=== PATIENT | male | born 1945 | race Caucasian/White ===

== ENCOUNTER 2024-08-30 00:35 | Inpatient (IN) | payer MEDICARE, OTHER, SELFPAY ==
[2024-08-29 21:36] VITALS: BP 136/81
[2024-08-29 22:07] LABS: Lactic Acid 1.3 mmol/L (0.7-2.0)
[2024-08-29 22:08] LABS: Hematocrit 41.8 % (39.0-52.0); Hemoglobin 14.4 g/dL (13.0-18.0); Mean Corp Hgb Conc. 34.4 g/dL (33.0-37.0); Mean Corpuscular Hgb 31.2 pg (27.0-31.0); Mean Corpuscular Volume 90.7 fL (80.0-94.0); Mean Platelet Volume 9.9 fL (7.4-10.4); Platelet Count 157 10^3/uL (130-400); Red Blood Cell Count 4.61 10^6/uL (4.70-6.10); Red Cell Dist. Width 13.2 % (11.5-14.5); White Blood Cell Count 16.4 10^3/uL (4.8-10.8)
[2024-08-29 22:11] LABS: COVID-19 Antigen Negative (Negative)
--- NOTE | 2024-08-29 22:11 | ED.GENMED ---
History of Present Illness
General
Chief Complaint: Cough
Source: patient and family
Exam Limitations: none
Time Seen by Provider: 08/29/24 22:04
History of Present Illness
History of Present Illness:
79yoM with a history of hypertension, hyperlipidemia, remote history of bladder cancer and melanoma presenting with his and daughter for evaluation of shortness of breath. History is limited due to cough and a majority of the history is
provided by his family members at bedside. Patient has been having a 'head cold' for the past week or so. He started to experience worsening cough and shortness of breath today and is unable to speak well due to his coughing. Cough was initially
productive but he is now bringing up less phlegm after taking 2 doses of Mucinex today. No fevers or chest pain.
Past History
Past History
ED Past Medical History: Cancer, HTN and Hypercholesterolemia
ED Past Surgical History: Appendectomy, Cholecystectomy and Other (Abdominal hernia repair)
Social History
Tobacco: Non-smoker
Alcohol: None
Drug: None
Personal:
Living: with family
Employment: Retired
Family History
Family History: Other (Noncontributory)
Phy Exam
General Physical Exam
General Presentation: mild distress
General age: appears stated age
General Skin: warm and dry
General Habitus: normal and elderly
General Mental: alert
ENT Exam
ENT Exam: normocephalic
Cardiovascular Exam
Cardiovascular Exam: regular rate/rhythm and no edema
Pulmonary Exam
Pulmonary Exam: no stridor, no wheezing and other (Frequent coughing throughout exam. Rales noted to RLL. Mildly increased WOB)
Neurological Exam
Neurological Exam: alert
Shila Coma Scale
Eye Opening: Spontaneous
Verbal Response: Oriented
Motor Response: Obeys Commands
GCS Total Score: 15
Skin Exam
Skin Exam: normal color and warm/dry
Psychiatric Exam
Psychiatric Exam: normal mood/affect
Course
Orders/Labs/Results
Orders:
Orders
08/29/24 21:39
CR Chest - 2 Views Urgent
Comment:
Reason For Exam: cough
08/29/24 21:47
Comprehensive Metabolic Panel Urgent
08/29/24 21:48
COVID-19 Antigen Urgent
Source: Nasal Swab
Complete Blood Count/With Diff Urgent
Lactic Acid Urgent
Influenza A+B Rapid Molecular Urgent
LUPILLO Source: Nasal Swab
Specimen Description:
08/29/24 22:10
Cardiac Monitoring- Treatment ONCE
08/29/24 22:13
Electrocardiogram (*1) Urgent
Reason for Study: Shortness of Breath
EKG- Treatment ONCE
08/29/24 22:18
NT-proBNP Urgent
Troponin I Urgent
08/29/24 22:47
CefTRIAXone [Rocephin] 2,000 mg IV NOW STA
08/29/24 23:00
Flush (0.9% Sodium Chloride) [Flush (Nss)] See Dose Instructions IV PER PROTOCOL
08/30/24 00:03
Admit/Transfer Patient As Directed
Co-Sign Provider:
Level of Care: Inpatient admission
Assign to:: Medical/Surgical
Physician / Group: Devon Martinez
Diagnosis: Pneumonia
Reason for Hospitalization: Pneumonia
Expected length of stay greater than two midnights?: Yes
ELOS- Estimated Length of Stay in days: 3
I certify the patient meets the requirements for IP care: Yes
08/30/24 00:04
PRN Pain Medication Management As Directed
May give lesser potent ordered pain med per pt: Yes
preference::
Protocol:: Medication orders for pain may be administered in a
manner that supports deferring to patient preference
when the pt is:
- Requesting an ordered lesser potent pain medication.
Least to most potent pain medications are defined
as: acetaminophen < NSAID < tramadol < opioids
(morphine, oxycodone, hydromorphone).
- Requesting a lesser dose of the same medication IF
ORDERED.
- Requesting a less intrusive route of administration
if both routes are prescribed by the provider (PO <
IV).
08/30/24 00:05
Code Status As Directed
Resuscitation Status: Full Code
08/30/24 01:06
Acetaminophen [Tylenol] 650 mg PO Q4HPRN PRN
08/30/24 01:06
Activity As Directed
Activity Level: Out of Bed-Early Mobility
Vital Signs As Directed
Frequency: Per unit guidelines
Weight As Directed
Frequency: Once
O2 Therapy [RESP] Routine
Titrate/Wean O2 to maintain O2 sat greater than (%): 93
Ot Eval And Treat Routine
Pt Eval And Treat Routine
Activity Level: Out of Bed-Early Mobility
DX Deep Vein Thrombosis Video Routine
08/30/24 01:30
Respiratory Culture/Gram Stain Routine
LUPILLO Source: Sputum
Specimen Description:
Date Specimen was Collected: 08/30/24
Time Specimen was Collected: 01:24
08/30/24 Breakfast
Regular
At Your Request: Full Participation
08/30/24 06:15
Legionella Urinary Antigen Routine
LUPILLO Source: Urine
Specimen Description:
Strep pneumoniae Antigen Routine
LUPILLO Source: Urine
Specimen Description:
08/30/24 06:20
Basic Metabolic Panel IN AM
Complete Blood Count/No Diff IN AM
08/30/24 08:00
Cholecalciferol (Vitamin D3) [VITAMIN D3 (cholecalciferol)] 50 mcg PO DAILY
Doxycycline [Vibramycin] 100 mg PO BID
Finasteride [Proscar] 5 mg PO DAILY
Guaifenesin [Mucinex] 600 mg PO Q12
Hydrochlorothiazide [Oretic] 12.5 mg PO DAILY
Rosuvastatin Calcium [Crestor] 5 mg PO DAILY
Tamsulosin [Flomax] 0.4 mg PO DAILY
Timolol Maleate 0.5% [Timoptic 0.5% Ophthalmic Solution] 1 drop BOTH EYES DAILY
Vit C/Vit E/Lutein/Min/[place]-3 [Ocuvite Softgel] 1 cap PO BID AT 0800,1700
08/30/24 18:00
Enoxaparin Sodium [Lovenox] 40 mg SC QPM
Latanoprost [Xalatan Ophthalmic Solution] 1 drop BOTH EYES QPM
08/30/24 22:00
CefTRIAXone [Rocephin] 1,000 mg IV Q24H
08/31/24 06:00
Basic Metabolic Panel IN AM
Complete Blood Count/No Diff IN AM
09/01/24 06:00
Basic Metabolic Panel IN AM
Complete Blood Count/No Diff IN AM
Abnormal Lab Results
08/29/24 08/29/24
21:47 21:48
WBC 16.4 H 10^3/uL
(4.8-10.8)
RBC 4.61 L 10^6/uL
(4.70-6.10)
MCH 31.2 H pg
(27.0-31.0)
Abs Immat Gran (auto) 0.1 H 10^3/uL
(0-0.05)
Absolute Neuts (auto) 10.1 H 10^3/uL
(1.4-6.5)
Absolute Lymphs (auto) 5.6 H 10^3/uL
(1.2-3.4)
BUN 23 H mg/dl
(9-20)
Glucose 137 H mg/dl
(70-99)
AST 60 H U/L
(17-59)
ALT 63 H U/L
(0-50)
08/29/24 21:48
08/29/24 21:47
Vital Signs
Initial and Last Documented VS:
Initial Vital Signs
Temp Pulse Resp BP Pulse Ox
99.9 F 87 22 136/81 92
08/29/24 21:36 08/29/24 21:36 08/29/24 21:36 08/29/24 21:36 08/29/24 21:36
Last Documented Vital Signs
Temp Pulse Resp BP Pulse Ox
99.7 F 83 20 130/71 94
08/30/24 01:28 08/30/24 04:45 08/30/24 04:45 08/30/24 04:00 08/30/24 06:38
MDM/Problems Addressed
Differential Diagnosis Includes:
79yoM here with cough x 1 week which is acutely worsening today with new SOB. Frequent coughing during exam. Mildly increased work of breathing noted. Oxygen saturation 90-92% on room air. Rales noted to the RLL. No peripheral edema noted.
Differential diagnosis includes but is not limited to: viral illness, bronchitis, pneumonia
Initial ED plan: Check cardiac labs, COVID/flu swab, EKG, and CXR.
*EKG
Interpreted by ED Provider?: Yes
EKG Intrepretation Date: 08/29/24
Heart Rate: 83
Rate: normal
Rhythm: sinus
Challenge: normal axis
Interval: normal interval
QRS Pattern: normal QRS
Ischemia: T-wave inversion
*Critical Care Note
Total Time (30-74mins, 75-104mins- exclusive of procedures): Not Applicable
Update Note
Update Note:
Leukocytosis noted with a WBC of 16. Mild transaminitis also present. COVID/flu negative. CXR shows a RLL infiltrate per my interpretation. IV Rocephin ordered and patient admitted for further management.
ED Attending Note
-
Portions of this chart may have been created with voice recognition software.� Occasional wrong word or��sound alike� substitutions may have occurred due to the inherent limitations of voice recognition software.
Discharge Plan
Departure
Patient Disposition: Admit
Date of Disposition: 08/29/24
Time of Disposition: 23:05
Presentation/result/management discussed w/ accepting MD/DO: Hospitalist
Discharge Problem:
Community acquired pneumonia
Interventions
Interventions:
*Risk Screen - Suicide Last Done: 08/30/24 01:30
*General Assessment Last Done: 08/29/24 21:36
*Neglect/Abuse Screening Last Done: 08/30/24 01:30
ED- Fall Risk Assessment Last Done: 08/29/24 22:00
ED- Pulmonary Assessment Last Done: 08/29/24 22:00
[2024-08-29 22:13] LABS: ALT (SGPT) 63 U/L (0-50); AST (SGOT) 60 U/L (17-59); Albumin 3.9 g/dl (3.5-5.0); Alkaline Phosphatase 98 U/L (38-126); Blood Urea Nitrogen 23 mg/dl (9-20); Calcium 9.2 mg/dl (8.4-10.2); Carbon Dioxide 25 mmol/L (22-30); Chloride 102 mmol/L (98-107); Glucose 137 mg/dl (70-99); Potassium 3.8 mmol/L (3.5-5.1); Sodium 135 mmol/L (135-145); Total Bilirubin 0.7 mg/dl (0.2-1.3); Total Protein 6.3 g/dl (6.3-8.2); eGFR > 60.00
[2024-08-29 22:30] VITALS: BMI 28.7
[2024-08-29 22:35] LABS: % Basophils 0.2 % (0-2); % Eosinophils 0.1 % (0-6); % Immature Granulocytes 0.4 % (0-0.5); % Lymphocytes 34.5 % (20.5-51.1); % Monocytes 3.1 % (1.7-9.3); % Neutrophils 61.7 % (42.2-75.2); Absolute Immature Granulocytes 0.1 10^3/uL (0-0.05); Absolute Lymphocytes 5.6 10^3/uL (1.2-3.4); Absolute Monocytes 0.5 10^3/uL (0.1-0.6); Absolute Neutrophils 10.1 10^3/uL (1.4-6.5); Nucleated Red Blood Cells % 0.2 % (-)
[2024-08-29 22:45] VITALS: BP 112/66
[2024-08-29 22:57] LABS: NT-proBNP 164 pg/ml; Troponin I < 0.012 ng/ml
[2024-08-29 23:00] VITALS: BP 116/69
[2024-08-29] MEDS: ROCEPHIN 2000 MG IV (23:08)
--- NOTE | 2024-08-29 23:21 | HPS.HSE ---
Addendum entered and electronically signed by Devon Martinez DO 08/30/24 01:08:
Patient seen and examined independently. Agree with findings and plan as set forth by MAY Junior.
Patient is a 79y M with PMH significant for hypertension, BPH and bladder cancer who presents to ED complaining of cough and weakness. Patient states that he has had sinus congestion, nasal congestion and symptoms of 'sinus infection' for the
past 7 days. Today he developed a cough in the AM and felt somewhat SOB. His family checked his SpO2 at home and noted that it was low. His SpO2 remained consistently in the high 80s and patient presented to the ED for further evaluation.
Ass:
RLL Pneumonia
Acute Hypoxemic Respiratory Insufficiency secondary to the above
Benign Hypertension
BPH
Bladder Cancer s/p BCG
Glaucoma
Plan:
Admit for further evaluation and treatment.
Abx for CAP.
Supportive care including O2, nebs, etc.
Follow for clinical improvement.
Continue usual outpatient medications.
Original Note:
Family Physician
-
Family Physician: NOT KNOW UNKNOWN - PT DOES
Chief Complaint
-
cough
History of Present Illness
Patient is 79-year-old male with past medical history significant for hypertension, hyperlipidemia, and BPH who presented to [place] ED for evaluation of acute onset cough and shortness of breath. Patient and daughter at bedside who assisted
in HPI. Patient has had mild URI symptoms for approximately 7 days and today he woke up with a cough and increased shortness of breath to the point he was having a hard time communicating. Cough reported as slightly productive. Denies fever, chills,
chest pain, nausea, vomiting, constipation, diarrhea or urinary symptoms.
Medical History
Past Medical History
Past Medical History: Reports Other
Additional Past Medical History:
hypertension
hyperlipidemia
BPH
glaucoma
macular degeneration
Hx bladder cancer
Hx melanoma and basal cell carcinoma
Past Surgical History: Reports Other
Additional Past Surgical History:
appendectomy
cholecystectomy
abdominal hernia repair
MOHS multiple times
cataract extraction
Social History
Tobacco: Non-smoker
Alcohol: None
Drug: None
Personal:
Living: With Family
Employment: Retired
Family History
Family History: Not pertinent and Other (Mother: brain tumor)
Allergies / Home Medications
Allergies reflects when Allergies were last updated in [facility].
Home Medications with original date entered in [facility] [employer]
Allergy/Medication List:
Allergies
Allergy/AdvReac Type Severity Reaction Status Date / Time
Sulfa (Sulfonamide Allergy Unknown Unknown Verified 08/29/24 21:36
Antibiotics)
Home Medications
alfuzosin 10 mg tablet,extended release 24 hr 10 mg PO DAILY 08/07/19
cholecalciferol (vitamin D3) 50 mcg (2,000 unit) tablet 1,000 units PO DAILY 08/07/19
hydrochlorothiazide 12.5 mg tablet 12.5 mg PO DAILY 08/07/19
rosuvastatin 5 mg tablet 5 mg PO DAILY 08/07/19
finasteride 5 mg tablet 5 mg PO DAILY 08/29/24
latanoprost 0.005 % eye drops 1 drp ophthalmic (eye) QPM 08/29/24
timolol 0.5 % eye drops 1 drp ophthalmic (eye) DAILY 08/29/24
vit C 250 mg-E 90 mg-zinc 40 mg-copper 1 [id number] chew tablet (PreserVision AREDS-2) 1 tab PO QAM AND QPM 08/29/24
Review of Systems
-
History Source: Patient and Family
Constitutional: Reports No Symptoms
EENT: Reports Sore Throat and Runny Nose
Respiratory: Reports Cough and Trouble Breathing (shortness of breath)
Cardiac: Reports No Symptoms
Abdomen/GI: Reports No Symptoms
: Reports No Symptoms
Musculoskeletal: Reports No Symptoms
Skin: Reports No Symptoms
Neurological: Reports No Symptoms
Endocrine: Reports No Symptoms
Hematologic/Lymphatic: Reports No Symptoms
Psych: Reports No Symptoms
Physical Exam
Vital Signs
Vital Signs
Temp Pulse Resp BP Pulse Ox
99.9 F 87 22 136/81 92
08/29/24 21:36 08/29/24 21:36 08/29/24 21:36 08/29/24 21:36 08/29/24 21:36
Physical Exam
General: Well Developed, Well Nourished and No Apparent Distress
HEENT: NormoCephalic, Moist mucous membranes, Atraumatic, [place] Conjunctivae, Nose Appears Normal, Ears Appear Normal and Hearing Impaired
Respiratory: Wheezes, Crackles, Non Labored Respirations and Decreased Breath Sounds
Cardiac: S1/S2 and Regular Rhythm; No Murmur, Rub or Gallop
Breast: Deferred by me
GI: Soft, Non Tender, Non Distended and Normal Bowel Sounds; No Organomegaly
Rectal: Deferred by Provider
Genito-urinary: Deferred by me
Musculoskeletal: No Clubbing, No Cyanosis and No Edema
Skin: Warm and IV/Catheter Site; No Rash
Neuro: Awake, Alert and Nonfocal/grossly intact
Hematologic/Lymphatic: No Lymphadenopathy
Psych: Calm
Laboratory Results
-
08/29/24 21:48
08/29/24 21:47
Laboratory Results
Lactic Acid 1.3 mmol/L (0.7-2.0) 08/29/24 21:48
Total Bilirubin 0.7 mg/dl (0.2-1.3) 08/29/24 21:47
AST 60 U/L (17-59) H 08/29/24 21:47
ALT 63 U/L (0-50) H 08/29/24 21:47
Alkaline Phosphatase 98 U/L (38-126) 08/29/24 21:47
Troponin I < 0.012 ng/ml 08/29/24 22:18
Data Reviewed
-
Diagnostic Radiology: Report Reviewed by me
Medical Tests (Nuc Med, Echo, EKG etc): Report Reviewed by me (EKG: NORMAL SINUS RHYTHM NONSPECIFIC T WAVE ABNORMALITY)
Lab Data: Labs Reviewed by me
Impression/Plan
-
IMPRESSION/PLAN:
#Pneumonia
WBC 16.4
CXR: appears to have RLL infiltrate
Influenza and Covid negative
- Admit to med/surg
- Rocephin and Doxycycline
- support measures
#hypertension
- continue HCTZ
#hyperlipidemia
- continue rosuvastatin
#BPH
- continue alfuzosin, finasteride
#glaucoma
#macular degeneration
- continue latanoprost and timolol
#Hx bladder cancer
treated for 2 years with BCG
- follows with oncology out patient every 6 months
#Hx melanoma
#Hx basal cell carcinoma
multiple MOHS procedures, last one 6 months ago
- follows up out patient
Code Status: Full Code
DVT Prophylaxis: Lovenox Sq
[2024-08-30] VITALS (9 sets, daily range): BP systolic 113–133; BP diastolic 52–87; PULSE 86–89; O2SAT 92–93; BMI 28.1
--- NOTE | 2024-08-30 01:00 | EDRN ---
Patient ambulated to the restroom and back in bed resting comfortably and report to NADIA Garcia
[2024-08-30 07:09] LABS: Blood Urea Nitrogen 20 mg/dl (9-20); Calcium 8.9 mg/dl (8.4-10.2); Carbon Dioxide 26 mmol/L (22-30); Chloride 103 mmol/L (98-107); Estimated Creatinine Clearance 52 ml/min; Glucose 133 mg/dl (70-99); Potassium 3.7 mmol/L (3.5-5.1); Sodium 136 mmol/L (135-145); eGFR > 60.00
[2024-08-30 07:41] LABS: Hematocrit 41.4 % (39.0-52.0); Mean Corp Hgb Conc. 33.8 g/dL (33.0-37.0); Mean Corpuscular Hgb 31.4 pg (27.0-31.0); Mean Corpuscular Volume 92.8 fL (80.0-94.0); Mean Platelet Volume 10.2 fL (7.4-10.4); Platelet Count 159 10^3/uL (130-400); Red Blood Cell Count 4.46 10^6/uL (4.70-6.10); Red Cell Dist. Width 13.2 % (11.5-14.5); White Blood Cell Count 12.9 10^3/uL (4.8-10.8)
[2024-08-30] MEDS: OCUVITE SOFTGEL 1 CAP PO ×2 (09:13→17:49)
[2024-08-30] MEDS: MUCINEX 600 MG PO ×2 (09:13→20:04)
[2024-08-30] MEDS: PROSCAR 5 MG PO (09:13)
[2024-08-30] MEDS: CRESTOR 5 MG PO (09:13)
[2024-08-30] MEDS: VIBRAMYCIN 100 MG PO ×2 (09:13→20:04)
[2024-08-30] MEDS: VITAMIN D3 (cholecalciferol) 50 MCG PO (09:14)
[2024-08-30] MEDS: FLOMAX 0.4 MG PO (09:14)
[2024-08-30] MEDS: TIMOPTIC 0.5% OPHTHALMIC SOLUTION 1 DROP BOTH EYES (09:14)
[2024-08-30] MEDS: ORETIC 12.5 MG PO (09:14)
--- NOTE | 2024-08-30 13:56 | W.PN.HOSP.TC ---
Today's Communication/Plan
-
Monitor vital signs see plan
Check procalcitonin
Check CT chest
Wean oxygen as tolerated
Pulmonary evaluation
Discussed with family at bedside
Assessment / Plan
Assessment / Plan
General: Well Developed, Well Nourished and No Apparent Distress
HEENT: NormoCephalic, Moist mucous membranes, Atraumatic, [place] Conjunctivae, Nose Appears Normal, Ears Appear Normal and Hearing Impaired
Respiratory: Wheezes, Crackles, Non Labored Respirations and Decreased Breath Sounds
Cardiac: S1/S2 and Regular Rhythm; No Murmur, Rub or Gallop
GI: Soft, Non Tender, Non Distended and Normal Bowel Sounds
Musculoskeletal: No Edema
Neuro: Awake, Alert and Nonfocal/grossly intact
Psych: Calm
Community-acquired pneumonia
Met SIRS criteria however bcx checked on admission. will monitor. if any fever then check bcx
CXR: appears to have RLL infiltrate
Influenza and Covid negative
- cw Rocephin and Doxycycline
- support measures
Acute hypoxic respiratory failure, now on 5 L. Wean oxygen as tolerated. Check CT chest
Pulmonary evaluation
COVID, flu, Legionella negative
Check Pro-Inder
#hypertension
- continue HCTZ
#hyperlipidemia
- continue rosuvastatin
#BPH
- continue alfuzosin, finasteride
#glaucoma
#macular degeneration
- continue latanoprost and timolol
Mild LFT elevation
Monitor
#Hx bladder cancer
treated for 2 years with BCG
- follows with oncology out patient every 6 months
#Hx melanoma
#Hx basal cell carcinoma
multiple MOHS procedures, last one 6 months ago
- follows up out patient
Code Status: Full Code
DVT Prophylaxis: Lovenox Sq
I spent a total of 52 minutes with the patient or on the floor. More than 50% of this time involved counseling and coordination of care.
Anticipated Discharge: > 48 hours
Subjective/Interval History
-
Date of Service: August 30, 2024
has cough
Objective Data
-
Labs:
Laboratory Results
08/30/24
06:20
WBC 12.9 H
Hgb 14.0
Hct 41.4
Plt Count 159
Sodium 136
Potassium 3.7
Chloride 103
Carbon Dioxide 26
BUN 20
Creatinine 1.1
Glucose 133 H
Calcium 8.9
Vital Signs:
Vital Signs
Temp Pulse Resp BP Pulse Ox
98.2 F 83 20 130/71 94
08/30/24 13:06 08/30/24 04:45 08/30/24 04:45 08/30/24 04:00 08/30/24 06:38
--- NOTE | 2024-08-30 14:36 | CON.PUL ---
Consultation
Consultation Request
Date/Time Consultation Requested: 08/30/2024 - 1404
Date/Time Consultation Performed: 08/30/2024 - 1429
Requesting Provider: Dr. Wade
Performing Provider: Dr. Hastings
Reason for Consultation: PNA/Hypoxia
Medical History
-
Chief Complaint: SOB, cough/congestion
History of Present Illness:
79-year-old male with a past medical history of hypertension/hyperlipidemia, glaucoma, BPH and history of bladder cancer who presents with shortness of breath + cough/congestion. He had mild URI symptoms starting about a week ago and today his
cough/shortness of breath worsened. He denies any fevers or chills. Initially in the ER he was afebrile to 99.9 �F, pulse rate 87, breathing at 22 breaths/min, BP 136/81 and saturating 92% on room air. Labs showed leukocytosis to 16.4, platelet
count 157, AST 60, ALT 63, troponin negative at <0.012, proBNP 164 and COVID-19 antigen negative. Flu A/B swab negative unless mentioned above. CXR shows concern for mild right basilar pneumonia versus atelectasis. He was given ceftriaxone in the
ER and admitted to [facility]. Pulmonary service now consulted for additional management/recommendations.
When I saw the pt he was resting in a chair in NAD, on 4L/min. He says he feels better now with improved SOB. The RN performed chest PT x2 on him with cupping, and he felt much improved since then. His daughter Isabel is at bedside - all questions
were answered. He is coughing up thin yellow/green phlegm, and bringing it up without too much trouble. He does not use inhalers at home. No Hx of lung disease. He was in the [place] recently earlier this week. According to the pt, he had
been blowing his nose with nasal congestion x 2 weeks. He felt in his usual state of health this past Tuesday (08/28/2024), but the day after he had a 'terrible' cough and felt SOB. His daughter works in pediatrics and she checked his pulse ox,
and he was 90-91% at home.
PMHx: Hypertension, hyperlipidemia, BPH, glaucoma, macular degeneration, history of bladder cancer, history of melanoma/basal cell carcinoma
PHSx: Appendectomy, cholecystectomy, abdominal hernia repair, Mohs procedure, cataract extraction
Past Medical History
Past Medical History: Other (Above as per HPI)
Past Surgical History: Other (Above as per HPI)
Social History
Tobacco: Former Smoker (Quit 50 years ago; smoked 0.5-1PPD x 8-10 years)
Alcohol: None
Drug: None
Living: With Family
Employment: Retired
Family History
Family History: Other (Mother: Brain tumor)
Allergies / Home Medications
Allergies
Allergy/AdvReac Type Severity Reaction Status Date / Time
Sulfa (Sulfonamide Allergy Unknown Unknown Verified 08/29/24 21:36
Antibiotics)
Home Medications
�Medication �Instructions �Recorded �Confirmed �Last Taken �Type
alfuzosin 10 mg tablet,extended 10 mg PO DAILY 08/07/19 08/30/24 08/07/19 History
release 24 hr
cholecalciferol (vitamin D3) 50 1,000 units PO DAILY 08/07/19 08/30/24 08/07/19 History
mcg (2,000 unit) tablet
hydrochlorothiazide 12.5 mg tablet 12.5 mg PO DAILY 08/07/19 08/30/24 08/07/19 History
rosuvastatin 5 mg tablet 5 mg PO DAILY 08/07/19 08/30/24 08/07/19 History
finasteride 5 mg tablet 5 mg PO DAILY 08/29/24 08/30/24 Unknown History
latanoprost 0.005 % eye drops 1 drp BOTH EYES QPM 08/29/24 08/30/24 Unknown History
timolol 0.5 % eye drops 1 drp BOTH EYES DAILY 08/29/24 08/30/24 Unknown History
vit C 250 mg-E 90 mg-zinc 40 1 tab PO BID 08/29/24 08/30/24 Unknown History
mg-copper 1 [id number] chew
tablet (PreserVision AREDS-2)
Review of Systems
-
History Source: Patient
All other systems: Negative unless noted
Vitals / Labs / Diagnostic Testing
Vital Signs
Temp Pulse Resp BP Pulse Ox
98.2 F 83 20 130/71 94
08/30/24 13:06 08/30/24 04:45 08/30/24 04:45 08/30/24 04:00 08/30/24 14:23
Lab Data
08/30/24 06:20
08/30/24 06:20
Microbiology
08/30/24 01:30 Sputum Gram Stain - Preliminary
08/30/24 06:15 Urine Legionella Urinary Antigen - Final
Negative for Legionella pneumophila Serogroup 1 antigen.
A negative result does not rule out the possiblity of
Legionella infection due to other serogroups or species of
Legionella. Clinical correlation is recommended.
08/30/24 06:15 Urine Streptococcus pneumoniae Antigen (M - Final
Negative for Streptococcus pneumoniae antigen.
A negative result does not exclude infection with
Streptococcus pneumoniae. Clinical correlation is
recommended.
08/29/24 21:48 Nasal Swab Influenza Types A & B (KATE) - Final
Negative for Influenza A & B, NAAT
Negative results must be combined with clinical observations
and patient history.
Nucleic Acid Amplification test (NAAT)performed on the
[employer] platform.
Diagnostic Testing:
Physical Exam
-
HEENT: Normocephalic and Anicteric
Cardiovascular: S1/S2 and Peripheral Edema (+1 LE pitting edema b/l)
Respiratory: Wheeze (negative), Rales (bilateral (R>L)), Rhonchi (bilateral (R>L)) and Non-Labored Respirations
GI: Soft, Non Distended, Non Tender and Normal Bowel Sounds
Neurology: AO x 3 and Tremors (negative)
Skin: Warm and Dry
General: Respiratory Distress (negative), Comfortable, Fever (negative) and Chills (negative)
Assessment
-
Assessment: 79-year-old male with a past medical history of hypertension/hyperlipidemia, glaucoma, BPH and history of bladder cancer who presents with shortness of breath + cough/congestion. He had mild URI symptoms starting about a week ago and
today his cough/shortness of breath worsened. He denies any fevers or chills. Initially in the ER he was afebrile to 99.9 �F, pulse rate 87, breathing at 22 breaths/min, BP 136/81 and saturating 92% on room air. Labs showed leukocytosis to 16.4,
platelet count 157, AST 60, ALT 63, troponin negative at <0.012, proBNP 164 and COVID-19 antigen negative. Flu A/B swab negative unless mentioned above. CXR shows concern for mild right basilar pneumonia versus atelectasis. He was given
ceftriaxone in the ER and admitted to [facility]. Pulmonary service now consulted for additional management/recommendations.
Chronic conditions [employer]RE[employer]: Hypertension, hyperlipidemia, BPH, glaucoma, macular degeneration, history of bladder cancer, history of melanoma/basal cell carcinoma
Impression:
#Acute respiratory failure due to CAP
#CAP (predominantly involving RML/RLL, also patchy opacities in posterior RUL)
#Leukocytosis due to sepsis without shock
#Transaminitis with elevated AST + ALT (mild)
#History of hypertension
#History of hyperlipidemia
#History of bladder cancer
#Former tobacco smoker (Quit 50 years ago; smoked 0.5-1PPD x 8-10 years)
Plan:
- Given the patient's clinically having shortness of breath with cough/congestion with CXR showing RLL basilar opacification and R-sided PNA on CTA chest, agree with Tx for CAP
- I do not have any prior chest imaging to compare to
- Continue with antibiotics and plan for 7 days assuming he continues to clinically improve and remains afebrile for 40 hours prior to stopping antibiotics
- Currently on ceftriaxone/doxycycline
- Follow-up respiratory culture (collected today); urine antigens for Legionella + strep pneumonia are both negative
- Advised to take his doxycycline with food otherwise he is at risk of nausea/vomiting
- prn anti-tussants
- prn nebulized bronchodilators - not currently bronchospastic
- Mucolytics
- Acapella + chest PT
- He will need repeat imaging in 4-6 weeks to ensure his pneumonia resolves
- Maintain SpO2 >90-94% with supplemental O2 and wean down as tolerated
- Incentive spirometer encouraged q1hr while awake
- Replete electrolytes with K>4, Mg>2
- Maintain euglycemia with goal BG >100 and <180
- DVT ppx: LMWH
Pulmonary service will continue to follow along. Outpatient pulmonary follow up will also be arranged.
Data:
CTA Chest 08/30/2024:
1. No evidence of pulmonary embolism.
2. Severe right lower lobe pneumonia. Mild infectious/inflammatory bronchiolitis change in the right upper lobe and right middle lobe.
3. Left thyroid lobe nodule measures up to 3.3 cm. Recommend outpatient workup with dedicated thyroid ultrasound if not previously performed.
CXR 08/29/2024: Mild right basilar atelectasis or pneumonia.
Total time spent today was 56 minutes for this encounter. Time includes reviewing laboratory test/imaging results, reviewing pertinent medical records, obtaining and reviewing medical history, performing an appropriate exam, ordering medications,
tests and procedures. Time also includes documentation of this encounter, coordinating patient care and communicating with other healthcare professionals. Total time does not include separately billed tests performed on this date of service.
[2024-08-30 17:27] LABS: Procalcitonin 1.61 ng/ml (0.0-0.25)
[2024-08-30] MEDS: LOVENOX 40 MG SC (17:49)
--- NOTE | 2024-08-30 19:04 | PTCARENOTE ---
1800 Pt received from ED via stretcher accompanied by his and implementation technician. Pt ambulated from stretcher to standing scale with steady gait. Pt oriented to staff, environment and call light system. All personal items and call light within reach.
[2024-08-30] MEDS: XALATAN OPHTHALMIC SOLUTION 1 DROP BOTH EYES (20:04)
[2024-08-30] MEDS: ROCEPHIN 1000 MG IV (21:13)
[2024-08-30] MEDS: STERILE WATER FOR INJECTION 10 ML IV (21:14)
[2024-08-31 07:12] VITALS: BP 114/67
[2024-08-31 07:54] LABS: ALT (SGPT) 46 U/L (0-50); AST (SGOT) 43 U/L (17-59); Albumin 2.9 g/dl (3.5-5.0); Alkaline Phosphatase 83 U/L (38-126); Blood Urea Nitrogen 22 mg/dl (9-20); Calcium 8.6 mg/dl (8.4-10.2); Carbon Dioxide 34 mmol/L (22-30); Chloride 99 mmol/L (98-107); Estimated Creatinine Clearance 47 ml/min; Glucose 105 mg/dl (70-99); Potassium 3.5 mmol/L (3.5-5.1); Sodium 134 mmol/L (135-145); Total Bilirubin 0.6 mg/dl (0.2-1.3); Total Protein 5.3 g/dl (6.3-8.2); eGFR > 60.00
[2024-08-31 08:17] LABS: Hematocrit 36.9 % (39.0-52.0); Hemoglobin 12.9 g/dL (13.0-18.0); Mean Corpuscular Hgb 31.8 pg (27.0-31.0); Mean Corpuscular Volume 90.9 fL (80.0-94.0); Mean Platelet Volume 10.3 fL (7.4-10.4); Platelet Count 139 10^3/uL (130-400); Red Blood Cell Count 4.06 10^6/uL (4.70-6.10)
--- NOTE | 2024-08-31 08:20 | W.PN.PUL3 ---
Today's Communication / Plan
-
Antibiotics
prn nebulized bronchodilators
Repeat imaging in 4 to 6 weeks to follow pneumonia resolution
Follow-up sputum Cx (NGTD)
Up OOB as tolerated
Encourage incentive spirometer
Mucolytics
Acapella
Pulmonary service will continue to follow along; outpatient follow-up will be arranged
Assessment
-
Assessment: 79-year-old male with a past medical history of hypertension/hyperlipidemia, glaucoma, BPH and history of bladder cancer who presents with shortness of breath + cough/congestion. He had mild URI symptoms starting about a week ago and
today his cough/shortness of breath worsened. He denies any fevers or chills. Initially in the ER he was afebrile to 99.9 �F, pulse rate 87, breathing at 22 breaths/min, BP 136/81 and saturating 92% on room air. Labs showed leukocytosis to 16.4,
platelet count 157, AST 60, ALT 63, troponin negative at <0.012, proBNP 164 and COVID-19 antigen negative. Flu A/B swab negative unless mentioned above. CXR shows concern for mild right basilar pneumonia versus atelectasis. He was given
ceftriaxone in the ER and admitted to [facility]. Pulmonary service now consulted for additional management/recommendations.
Chronic conditions FI[employer]GER: Hypertension, hyperlipidemia, BPH, glaucoma, macular degeneration, history of bladder cancer, history of melanoma/basal cell carcinoma
Impression:
#Acute respiratory failure due to CAP
#CAP (predominantly involving RML/RLL, also patchy opacities in posterior RUL)
#Leukocytosis due to sepsis without shock
#Transaminitis with elevated AST + ALT (mild) - now resolved
#History of hypertension
#History of hyperlipidemia
#History of bladder cancer
#Former tobacco smoker (Quit 50 years ago; smoked 0.5-1PPD x 8-10 years)
Plan:
- Given the patient's clinically having shortness of breath with cough/congestion with CXR showing RLL basilar opacification and R-sided PNA on CTA chest, agree with Tx for CAP
- I do not have any prior chest imaging to compare to
- Continue with antibiotics and plan for 7 days assuming he continues to clinically improve and remains afebrile for 48 hours prior to stopping antibiotics
- Currently on ceftriaxone/doxycycline
- Follow-up respiratory culture (collected 08/30/2024 - NGTD); urine antigens for Legionella + strep pneumonia are both negative
- Advised to take his doxycycline with food otherwise he is at risk of nausea/vomiting
- prn anti-tussants
- prn nebulized bronchodilators - not currently bronchospastic
- Mucolytics
- Acapella + chest PT
- He will need repeat imaging in 4-6 weeks to ensure his pneumonia resolves
- Maintain SpO2 >90-94% with supplemental O2 and wean down as tolerated
- Incentive spirometer encouraged q1hr while awake
- Replete electrolytes with K>4, Mg>2
- Maintain euglycemia with goal BG >100 and <180
- DVT ppx: LMWH
Pulmonary service will continue to follow along. Outpatient pulmonary follow up will also be arranged.
Data:
CTA Chest 08/30/2024:
1. No evidence of pulmonary embolism.
2. Severe right lower lobe pneumonia. Mild infectious/inflammatory bronchiolitis change in the right upper lobe and right middle lobe.
3. Left thyroid lobe nodule measures up to 3.3 cm. Recommend outpatient workup with dedicated thyroid ultrasound if not previously performed.
CXR 08/29/2024: Mild right basilar atelectasis or pneumonia.
Total time spent today was 37 minutes for this encounter. Time includes reviewing laboratory test/imaging results, reviewing pertinent medical records, obtaining and reviewing medical history, performing an appropriate exam, ordering medications,
tests and procedures. Time also includes documentation of this encounter, coordinating patient care and communicating with other healthcare professionals. Total time does not include separately billed tests performed on this date of service.
Subjective Data
-
Date of Service:
Date of Service: August 31, 2024
Chief Complaint: Pulmonary Follow Up
Subjective:
Patient seen and evaluated today at bedside. Patient's , Yessenia, at bedside and all questions were answered. Patient currently on 2 L/min nasal cannula and says that he is breathing much better today. Coughing less although still endorses
chest congestion. No chest pain but has belly discomfort due to coughing. Denies GIBSON, nausea, vomiting, fevers chills.
Review of Systems
General: Other (Negative unless mentioned above)
Objective Data
Data Reviewed
Vital Signs / I&O / Oxygen:
Vital Signs
Temp Pulse Resp BP Pulse Ox
98.8 F 66 16 114/67 95
08/31/24 07:12 08/31/24 07:12 08/31/24 07:12 08/31/24 07:12 08/31/24 07:12
Intake and Output
08/30/24 08/31/24 09/01/24
06:59 06:59 06:59
Intake Total 120 / 120
Balance 120 / 120
SaO2 95
Nasal Cannula flow liters per 4
minute
Physical Exam
General: Respiratory Distress (negative), Comfortable, Chills (negative) and Sweats (negative)
HEENT: Normocephalic and Anicteric
Cardiovascular: S1-S2 and Peripheral Edema (negative)
Respiratory: Wheeze (negative), Crackles (Right base), Rhonchi (negative), Non-Labored Respirations and Stridor (negative)
GI: Soft, Distended (Abdominal obesity), Non Tender and Normal Bowel Sounds
Neurology: AO x 3 and Tremors (negative)
Skin: Warm, Dry, Cyanosis (negative) and Jaundice (negative)
Labs/Micro/Reports
Lab Data
08/31/24 06:12
08/31/24 06:12
Microbiology
08/30/24 16:49 Urine Legionella Urinary Antigen - Final
Negative for Legionella pneumophila Serogroup 1 antigen.
A negative result does not rule out the possiblity of
Legionella infection due to other serogroups or species of
Legionella. Clinical correlation is recommended.
08/30/24 16:49 Urine Streptococcus pneumoniae Antigen (M - Final
Negative for Streptococcus pneumoniae antigen.
A negative result does not exclude infection with
Streptococcus pneumoniae. Clinical correlation is
recommended.
08/30/24 01:30 Sputum Gram Stain - Preliminary
08/30/24 06:15 Urine Legionella Urinary Antigen - Final
Negative for Legionella pneumophila Serogroup 1 antigen.
A negative result does not rule out the possiblity of
Legionella infection due to other serogroups or species of
Legionella. Clinical correlation is recommended.
08/30/24 06:15 Urine Streptococcus pneumoniae Antigen (M - Final
Negative for Streptococcus pneumoniae antigen.
A negative result does not exclude infection with
Streptococcus pneumoniae. Clinical correlation is
recommended.
08/29/24 21:48 Nasal Swab Influenza Types A & B (KATE) - Final
Negative for Influenza A & B, NAAT
Negative results must be combined with clinical observations
and patient history.
Nucleic Acid Amplification test (NAAT)performed on the
[employer] platform.
[2024-08-31] MEDS: OCUVITE SOFTGEL 1 CAP PO ×2 (10:08→18:04)
[2024-08-31] MEDS: VIBRAMYCIN 100 MG PO ×2 (10:08→20:51)
[2024-08-31] MEDS: MUCINEX 600 MG PO ×2 (10:08→20:50)
[2024-08-31] MEDS: VITAMIN D3 (cholecalciferol) 50 MCG PO (10:08)
[2024-08-31] MEDS: FLOMAX 0.4 MG PO (10:08)
[2024-08-31] MEDS: ORETIC 12.5 MG PO (10:09)
[2024-08-31] MEDS: CRESTOR 5 MG PO (10:09)
[2024-08-31] MEDS: PROSCAR 5 MG PO (10:09)
[2024-08-31] MEDS: TESSALON PERLES 200 MG PO (10:09)
[2024-08-31] MEDS: TIMOPTIC 0.5% OPHTHALMIC SOLUTION 1 DROP BOTH EYES (10:10)
--- NOTE | 2024-08-31 12:02 | PN.CDI ---
CDI
- -
CDI:
Physician Documentation Request
Admit Date: 08/30/24 00:35
Dear Doctor Mauro,
08/30 pulmonary consultation contains a diagnosis of sepsis. 'Leukocytosis due to sepsis...'
08/29 WBC 16.4. Patient has remained afebrile. 08/29 heart rates 70s-80s, respiratory rates 20-24
Please clarify the following:
____ - Sepsis was present on admission
____ - Sepsis was ruled out
____ - Other
�Sepsis
-Systemic manifestations of infection, with 2 or more SIRS criteria which include:
-Fever > 100.4��F or hypothermia < 96.8��F
-Leukocytosis WBC > 12,000 or leukopenia, WBC < 4,000, or > 10% bands
-Tachycardia- > 90 beats/minute
-Tachypnea- RR > 20 breaths/minute or PaCO2 < 32mmHg
Source: [employer]ck Manual 2013
Use of terms such as suspected, likely, concern for, or probable (associated with a specific diagnosis that is being evaluated, monitored, or treated as if it exists) are acceptable and can be coded in the inpatient setting, when documented at the
time of discharge.
Thank you,
Blanca Arana RN, BSN
CDI Specialist
tiger text
Please use your independent medical judgment in providing your response.
--- NOTE | 2024-08-31 13:14 | W.PN.HOSP.TC ---
Today's Communication/Plan
-
Monitor vital signs see plan
Continue with antibiotics
Wean oxygen as tolerated, now on 2 L
Continue with Acapella
PT/OT
discussed with daughter at bedside
Assessment / Plan
Assessment / Plan
General: Well Developed, Well Nourished and No Apparent Distress
HEENT: NormoCephalic, Moist mucous membranes, Atraumatic, [place] Conjunctivae, Nose Appears Normal, Ears Appear Normal and Hearing Impaired
Respiratory: Wheezes, Crackles, Non Labored Respirations and Decreased Breath Sounds
Cardiac: S1/S2 and Regular Rhythm; No Murmur, Rub or Gallop
GI: Soft, Non Tender, Non Distended and Normal Bowel Sounds
Musculoskeletal: No Edema
Neuro: Awake, Alert and Nonfocal/grossly intact
Psych: Calm
Community-acquired pneumonia
Sepsis on admission likely secondary to above
Met SIRS criteria however bcx checked on admission. will monitor. if any fever then check bcx
CXR: appears to have RLL infiltrate
Influenza and Covid negative
- cw Rocephin and Doxycycline
- support measures
Acute hypoxic respiratory failure, was on 5 L. Now weaned down to 2 L. Wean oxygen as tolerated. CT chest without PE. Does show pneumonia
Pulmonary following
COVID, flu, Legionella negative
Pro-Inder elevated
Left thyroid lobe nodule measures up to 3.3 cm. Recommend outpatient workup with dedicated thyroid ultrasound
#hypertension
- continue HCTZ
#hyperlipidemia
- continue rosuvastatin
#BPH
- continue alfuzosin, finasteride
#glaucoma
#macular degeneration
- continue latanoprost and timolol
Mild LFT elevation
Monitor
#Hx bladder cancer
treated for 2 years with BCG
- follows with oncology out patient every 6 months
#Hx melanoma
#Hx basal cell carcinoma
multiple MOHS procedures, last one 6 months ago
- follows up out patient
Code Status: Full Code
DVT Prophylaxis: Lovenox Sq
I spent a total of 51 minutes with the patient or on the floor. More than 50% of this time involved counseling and coordination of care.
Anticipated Discharge: 24 - 48 hours
Subjective/Interval History
-
Date of Service: August 31, 2024
denies pain
Objective Data
-
Labs:
Laboratory Results
08/31/24
06:12
WBC 8.0
Hgb 12.9 L
Hct 36.9 L
Plt Count 139
Sodium 134 L
Potassium 3.5
Chloride 99
Carbon Dioxide 34 H
BUN 22 H
Creatinine 1.2
Glucose 105 H
Calcium 8.6
Total Bilirubin 0.6
AST 43
ALT 46
Alkaline Phosphatase 83
Vital Signs:
Vital Signs
Temp Pulse Resp BP Pulse Ox
98.8 F 66 16 114/67 98
08/31/24 07:12 08/31/24 07:12 08/31/24 07:12 08/31/24 07:12 08/31/24 10:04
I&O
08/30/24 08/31/24 09/01/24
06:59 06:59 06:59
Intake Total 120 / 120
Balance 120 / 120
[2024-08-31 15:52] VITALS: BP 125/65
[2024-08-31] MEDS: XALATAN OPHTHALMIC SOLUTION 1 DROP BOTH EYES (18:04)
[2024-08-31] MEDS: LOVENOX 40 MG SC (18:04)
[2024-08-31] MEDS: ROCEPHIN 1000 MG IV (20:55)
[2024-08-31] MEDS: STERILE WATER FOR INJECTION 10 ML IV (20:55)
[2024-08-31 23:11] VITALS: BP 107/47
[2024-09-01 06:07] VITALS: BMI 28.5
[2024-09-01 07:00] VITALS: BP 120/66
[2024-09-01 08:31] LABS: Hematocrit 35.5 % (39.0-52.0); Hemoglobin 12.2 g/dL (13.0-18.0); Mean Corp Hgb Conc. 34.4 g/dL (33.0-37.0); Mean Corpuscular Hgb 31.1 pg (27.0-31.0); Mean Corpuscular Volume 90.6 fL (80.0-94.0); Mean Platelet Volume 10.2 fL (7.4-10.4); Platelet Count 148 10^3/uL (130-400); Red Blood Cell Count 3.92 10^6/uL (4.70-6.10)
[2024-09-01] MEDS: VIBRAMYCIN 100 MG PO ×2 (09:19→22:00)
[2024-09-01] MEDS: OCUVITE SOFTGEL 1 CAP PO ×2 (09:19→18:31)
[2024-09-01] MEDS: ORETIC 12.5 MG PO (09:19)
[2024-09-01] MEDS: MUCINEX 600 MG PO ×2 (09:19→21:45)
[2024-09-01] MEDS: PROSCAR 5 MG PO (09:19)
[2024-09-01] MEDS: VITAMIN D3 (cholecalciferol) 50 MCG PO (09:20)
[2024-09-01] MEDS: CRESTOR 5 MG PO (09:20)
[2024-09-01] MEDS: FLOMAX 0.4 MG PO (09:20)
[2024-09-01] MEDS: TIMOPTIC 0.5% OPHTHALMIC SOLUTION 1 DROP BOTH EYES (09:20)
[2024-09-01 09:31] LABS: ALT (SGPT) 41 U/L (0-50); AST (SGOT) 47 U/L (17-59); Albumin 2.9 g/dl (3.5-5.0); Alkaline Phosphatase 86 U/L (38-126); Blood Urea Nitrogen 28 mg/dl (9-20); Calcium 8.7 mg/dl (8.4-10.2); Carbon Dioxide 29 mmol/L (22-30); Chloride 97 mmol/L (98-107); Estimated Creatinine Clearance 52 ml/min; Glucose 109 mg/dl (70-99); Potassium 3.4 mmol/L (3.5-5.1); Sodium 133 mmol/L (135-145); Total Bilirubin 0.4 mg/dl (0.2-1.3); Total Protein 5.2 g/dl (6.3-8.2); eGFR > 60.00
--- NOTE | 2024-09-01 12:38 | W.PN.HOSP.TC ---
Today's Communication/Plan
-
Monitor vital signs see plan
Check ambulatory pulse ox
Continue with antibiotics
Mucolytic's, Acapella, chest PT
Discharge planning
Assessment / Plan
Assessment / Plan
General: Well Developed, Well Nourished and No Apparent Distress
HEENT: NormoCephalic, Moist mucous membranes, Atraumatic, [place] Conjunctivae, Nose Appears Normal, Ears Appear Normal and Hearing Impaired
Respiratory: Wheezes, Crackles, Non Labored Respirations and Decreased Breath Sounds
Cardiac: S1/S2 and Regular Rhythm; No Murmur, Rub or Gallop
GI: Soft, Non Tender, Non Distended and Normal Bowel Sounds
Musculoskeletal: No Edema
Neuro: Awake, Alert and Nonfocal/grossly intact
Psych: Calm
Community-acquired pneumonia
Sepsis on admission likely secondary to above
Met SIRS criteria however bcx checked on admission. will monitor. if any fever then check bcx
CXR: appears to have RLL infiltrate
Influenza and Covid negative
- cw Rocephin and Doxycycline
- support measures
Acute hypoxic respiratory failure, was on 5 L. Wean oxygen as tolerated. now on RA; check ambulatory pulse ox. CT chest without PE. Does show pneumonia
Pulmonary following
COVID, flu, Legionella negative
Pro-Inder elevated
chest PT
Left thyroid lobe nodule measures up to 3.3 cm. Recommend outpatient workup with dedicated thyroid ultrasound
#hypertension
- continue HCTZ
#hyperlipidemia
- continue rosuvastatin
#BPH
- continue alfuzosin, finasteride
#glaucoma
#macular degeneration
- continue latanoprost and timolol
Mild LFT elevation
Monitor
#Hx bladder cancer
treated for 2 years with BCG
- follows with oncology out patient every 6 months
#Hx melanoma
#Hx basal cell carcinoma
multiple MOHS procedures, last one 6 months ago
- follows up out patient
Code Status: Full Code
DVT Prophylaxis: Lovenox Sq
I spent a total of 52 minutes with the patient or on the floor. More than 50% of this time involved counseling and coordination of care.
Anticipated Discharge: Within 24 hours
Subjective/Interval History
-
Date of Service: September 01, 2024
denies pain
Objective Data
-
Labs:
Laboratory Results
09/01/24
07:43
WBC 7.0
Hgb 12.2 L
Hct 35.5 L
Plt Count 148
Sodium 133 L
Potassium 3.4 L
Chloride 97 L
Carbon Dioxide 29
BUN 28 H
Creatinine 1.1
Glucose 109 H
Calcium 8.7
Total Bilirubin 0.4
AST 47
ALT 41
Alkaline Phosphatase 86
Vital Signs:
Vital Signs
Temp Pulse Resp BP Pulse Ox
98.4 F 69 16 120/66 95
09/01/24 07:00 09/01/24 07:00 09/01/24 07:00 09/01/24 07:00 09/01/24 10:52
I&O
08/31/24 09/01/24 09/02/24
06:59 06:59 06:59
Intake Total 120 / 120 480 / 480
Balance 120 / 120 480 / 480
[2024-09-01] MEDS: KCL 20 MEQ PO (13:20)
[2024-09-01 15:00] VITALS: BP 127/77
--- NOTE | 2024-09-01 16:32 | W.PN.PUL3 ---
Today's Communication / Plan
-
Transition to oral antibiotics in next 24 hours
Oxygen has been weaned off
Antitussives
Continue Acapella in the outpatient
Outpatient pulmonary follow-up
No additional recommendation from the pulmonary perspective
Sign off
Assessment
-
Assessment: 79-year-old male with a past medical history of hypertension/hyperlipidemia, glaucoma, BPH and history of bladder cancer who presents with shortness of breath + cough/congestion. He had mild URI symptoms starting about a week ago and
today his cough/shortness of breath worsened. He denies any fevers or chills. Initially in the ER he was afebrile to 99.9 �F, pulse rate 87, breathing at 22 breaths/min, BP 136/81 and saturating 92% on room air. Labs showed leukocytosis to 16.4,
platelet count 157, AST 60, ALT 63, troponin negative at <0.012, proBNP 164 and COVID-19 antigen negative. Flu A/B swab negative unless mentioned above. CXR shows concern for mild right basilar pneumonia versus atelectasis. He was given
ceftriaxone in the ER and admitted to [facility]. Pulmonary service now consulted for additional management/recommendations.
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
Impression:
#Acute respiratory failure due to CAP
#CAP (predominantly involving RML/RLL, also patchy opacities in posterior RUL)
#Leukocytosis due to sepsis without shock
#Transaminitis with elevated AST + ALT (mild) - now resolved
#History of hypertension
#History of hyperlipidemia
#History of bladder cancer
#Former tobacco smoker (Quit 50 years ago; smoked 0.5-1PPD x 8-10 years)
Plan:
- Given the patient's clinically having shortness of breath with cough/congestion with CXR showing RLL basilar opacification and R-sided PNA on CTA chest, agree with Tx for CAP.
-Leukocytosis resolved. Afebrile.
Feels better
Oxygen supplementation has been weaned off
- I do not have any prior chest imaging to compare.
- Continue with antibiotics and plan for 7 days assuming he continues to clinically improve and remains afebrile for 48 hours prior to stopping antibiotics-transition to oral antibiotics in next 24 hours.
- Currently on ceftriaxone/doxycycline-
-Sputum culture with normal respiratory ira, all other microbiology reviewed and negative.
- prn anti-tussants
- prn nebulized bronchodilators - not currently bronchospastic
- Mucolytics
- Acapella + chest PT, encourage.
- He will need repeat imaging in 4-6 weeks to ensure his pneumonia resolves
Currently on 2 L, wean off as able. Home oxygen assessment.
- Maintain SpO2 >90-94% with supplemental O2 and wean down as tolerated
- Incentive spirometer encouraged q1hr while awake
- Replete electrolytes with K>4, Mg>2
- DVT ppx: LMWH
Pulmonary service will continue to follow along. Outpatient pulmonary follow up will also be arranged.
I agree with discharge planning, hopefully next 24 hours.
Data:
CTA Chest 08/30/2024:
1. No evidence of pulmonary embolism.
2. Severe right lower lobe pneumonia. Mild infectious/inflammatory bronchiolitis change in the right upper lobe and right middle lobe.
3. Left thyroid lobe nodule measures up to 3.3 cm. Recommend outpatient workup with dedicated thyroid ultrasound if not previously performed.
CXR 08/29/2024: Mild right basilar atelectasis or pneumonia.
Subjective Data
-
Date of Service:
Date of Service: September 01, 2024
Chief Complaint: Pulmonary Follow Up (Pneumonia, acute hypoxemic respiratory failure.)
Review of Systems
Cardiopulmonary: Dyspnea, Cough and Sputum Production
Objective Data
Data Reviewed
Vital Signs / I&O / Oxygen:
Vital Signs
Temp Pulse Resp BP Pulse Ox
98.4 F 69 16 120/66 95
09/01/24 07:00 09/01/24 07:00 09/01/24 07:00 09/01/24 07:00 09/01/24 10:52
Intake and Output
08/31/24 09/01/24 09/02/24
06:59 06:59 06:59
Intake Total 120 / 120 480 / 480
Balance 120 / 120 480 / 480
SaO2 95
Nasal Cannula flow liters per 2
minute
Physical Exam
General: Respiratory Distress (negative), Comfortable, Chills (negative) and Sweats (negative)
HEENT: Normocephalic and Anicteric
Cardiovascular: S1-S2 and Peripheral Edema (negative)
Respiratory: Wheeze (negative), Crackles (Right base), Rhonchi (negative), Non-Labored Respirations and Stridor (negative)
GI: Soft, Distended (Abdominal obesity), Non Tender and Normal Bowel Sounds
Neurology: AO x 3 and Tremors (negative)
Skin: Warm, Dry, Cyanosis (negative) and Jaundice (negative)
Labs/Micro/Reports
Lab Data
09/01/24 07:43
09/01/24 07:43
Microbiology
08/30/24 01:30 Sputum Respiratory Culture - Final
Usual Respiratory Ira
08/30/24 01:30 Sputum Gram Stain - Final
08/30/24 16:49 Urine Legionella Urinary Antigen - Final
Negative for Legionella pneumophila Serogroup 1 antigen.
A negative result does not rule out the possiblity of
Legionella infection due to other serogroups or species of
Legionella. Clinical correlation is recommended.
08/30/24 16:49 Urine Streptococcus pneumoniae Antigen (M - Final
Negative for Streptococcus pneumoniae antigen.
A negative result does not exclude infection with
Streptococcus pneumoniae. Clinical correlation is
recommended.
08/30/24 06:15 Urine Legionella Urinary Antigen - Final
Negative for Legionella pneumophila Serogroup 1 antigen.
A negative result does not rule out the possiblity of
Legionella infection due to other serogroups or species of
Legionella. Clinical correlation is recommended.
08/30/24 06:15 Urine Streptococcus pneumoniae Antigen (M - Final
Negative for Streptococcus pneumoniae antigen.
A negative result does not exclude infection with
Streptococcus pneumoniae. Clinical correlation is
recommended.
08/29/24 21:48 Nasal Swab Influenza Types A & B (KATE) - Final
Negative for Influenza A & B, NAAT
Negative results must be combined with clinical observations
and patient history.
Nucleic Acid Amplification test (NAAT)performed on the
Penboost platform.
[2024-09-01 16:45] VITALS: BP 127/77; PULSE 70; O2SAT 95
[2024-09-01] MEDS: XALATAN OPHTHALMIC SOLUTION 1 DROP BOTH EYES (18:31)
[2024-09-01] MEDS: LOVENOX 40 MG SC (18:31)
[2024-09-01] MEDS: ROCEPHIN 1000 MG IV (21:44)
[2024-09-01] MEDS: STERILE WATER FOR INJECTION 10 ML IV (21:44)
[2024-09-01 23:05] VITALS: BP 100/49
[2024-09-02 07:28] LABS: % Basophils 0.5 % (0-2); % Eosinophils 2.4 % (0-6); % Immature Granulocytes 0.3 % (0-0.5); % Lymphocytes 46.7 % (20.5-51.1); % Monocytes 4.8 % (1.7-9.3); % Neutrophils 45.3 % (42.2-75.2); Absolute Eosinophils 0.1 10^3/uL (0-0.7); Absolute Lymphocytes 2.7 10^3/uL (1.2-3.4); Absolute Monocytes 0.3 10^3/uL (0.1-0.6); Absolute Neutrophils 2.6 10^3/uL (1.4-6.5); Hematocrit 36.9 % (39.0-52.0); Hemoglobin 12.7 g/dL (13.0-18.0); Mean Corp Hgb Conc. 34.4 g/dL (33.0-37.0); Mean Corpuscular Hgb 31.1 pg (27.0-31.0); Mean Corpuscular Volume 90.4 fL (80.0-94.0); Nucleated Red Blood Cells % 0 % (-); Platelet Count 146 10^3/uL (130-400); Red Blood Cell Count 4.08 10^6/uL (4.70-6.10); Red Cell Dist. Width 13.1 % (11.5-14.5); White Blood Cell Count 5.8 10^3/uL (4.8-10.8)
[2024-09-02] MEDS: PROSCAR 5 MG PO (07:53)
[2024-09-02] MEDS: VITAMIN D3 (cholecalciferol) 50 MCG PO (07:53)
[2024-09-02] MEDS: MUCINEX 600 MG PO (07:53)
[2024-09-02] MEDS: FLOMAX 0.4 MG PO (07:53)
[2024-09-02] MEDS: OCUVITE SOFTGEL 1 CAP PO (07:53)
[2024-09-02] MEDS: CRESTOR 5 MG PO (07:53)
[2024-09-02] MEDS: ORETIC 12.5 MG PO (07:53)
[2024-09-02] MEDS: VIBRAMYCIN 100 MG PO (07:53)
[2024-09-02] MEDS: TIMOPTIC 0.5% OPHTHALMIC SOLUTION 1 DROP BOTH EYES (07:55)
[2024-09-02 07:57] LABS: ALT (SGPT) 44 U/L (0-50); AST (SGOT) 58 U/L (17-59); Alkaline Phosphatase 91 U/L (38-126); Blood Urea Nitrogen 18 mg/dl (9-20); Carbon Dioxide 28 mmol/L (22-30); Chloride 99 mmol/L (98-107); Estimated Creatinine Clearance 52 ml/min; Glucose 141 mg/dl (70-99); Potassium 3.2 mmol/L (3.5-5.1); Sodium 135 mmol/L (135-145); Total Bilirubin 0.4 mg/dl (0.2-1.3); Total Protein 5.4 g/dl (6.3-8.2); eGFR > 60.00
[2024-09-02 08:48] VITALS: BP 123/68
[2024-09-02] MEDS: KCL 40 MEQ PO (09:03)
--- NOTE | 2024-09-02 11:37 | W.PN.HOSP.TC ---
Today's Communication/Plan
-
Monitor vital signs see plan
Switch antibiotics to oral
Humera Sanchez
Replete potassium
Discharge today
Does not need home O2
Discussed with spouse over the phone
Time of discharge 39 minutes
Assessment / Plan
Assessment / Plan
General: Well Developed, Well Nourished and No Apparent Distress
HEENT: NormoCephalic, Moist mucous membranes, Atraumatic, Scott Conjunctivae, Nose Appears Normal, Ears Appear Normal and Hearing Impaired
Respiratory: Wheezes, Crackles, Non Labored Respirations and Decreased Breath Sounds
Cardiac: S1/S2 and Regular Rhythm; No Murmur, Rub or Gallop
GI: Soft, Non Tender, Non Distended and Normal Bowel Sounds
Musculoskeletal: No Edema
Neuro: Awake, Alert and Nonfocal/grossly intact
Psych: Calm
Community-acquired pneumonia
Sepsis on admission likely secondary to above
Met SIRS criteria however bcx checked on admission. will monitor. if any fever then check bcx
CXR: appears to have RLL infiltrate
Influenza and Covid negative
- cw Rocephin and Doxycycline. Switch antibiotics to oral
- support measures
Acute hypoxic respiratory failure, was on 5 L. Wean oxygen as tolerated. now on RA; per ambulatory pulse ox does not require home O2. CT chest without PE. Does show pneumonia
Pulmonary following
COVID, flu, Legionella negative
Pro-Inder elevated
chest PT noted with pneumonia
Left thyroid lobe nodule measures up to 3.3 cm. Recommend outpatient workup with dedicated thyroid ultrasound
#hypertension
- continue HCTZ
Hypokalemia
Please
#hyperlipidemia
- continue rosuvastatin
#BPH
- continue alfuzosin, finasteride
#glaucoma
#macular degeneration
- continue latanoprost and timolol
Mild LFT elevation
Resolved
#Hx bladder cancer
treated for 2 years with BCG
- follows with oncology out patient every 6 months
#Hx melanoma
#Hx basal cell carcinoma
multiple MOHS procedures, last one 6 months ago
- follows up out patient
Code Status: Full Code
DVT Prophylaxis: Lovenox Sq
Anticipated Discharge: Today
Subjective/Interval History
-
Date of Service: September 02, 2024
Denies chest pain
Objective Data
-
Labs:
Laboratory Results
09/02/24
07:06
WBC 5.8
Hgb 12.7 L
Hct 36.9 L
Plt Count 146
Sodium 135
Potassium 3.2 L
Chloride 99
Carbon Dioxide 28
BUN 18
Creatinine 1.1
Glucose 141 H
Calcium 9.0
Total Bilirubin 0.4
AST 58
ALT 44
Alkaline Phosphatase 91
Vital Signs:
Vital Signs
Temp Pulse Resp BP Pulse Ox
98.2 F 70 20 123/68 92
09/02/24 08:48 09/02/24 08:48 09/02/24 08:48 09/02/24 08:48 09/02/24 09:23
I&O
09/01/24 09/02/24 09/03/24
06:59 06:59 06:59
Intake Total 480 / 480 1380 / 1380
Balance 480 / 480 1380 / 1380
--- NOTE | 2024-09-02 11:54 | W.DCSUMMARY ---
Discharge Summary
Discharge Data
Date of Admission: 08/30/24
Date of Discharge: 09/02/24
-
Pending Results: No
Hospital Course
79-year-old male with past medical history of hypertension, hyperlipidemia, BPH, glaucoma, macular degeneration, history of bladder cancer, melanoma, basal cell carcinoma came to the hospital with shortness of breath with community-acquired
pneumonia. Patient symptoms continue to improve with IV antibiotic which was later transitioned to p.o. antibiotics prior to discharge. Initially he required oxygenation however he was able to be weaned off oxygen prior to discharge. He also got
a CT chest which did show pneumonia. It also showed incidental finding of left thyroid nodule for which she was instructed to follow-up outpatient with thyroid ultrasound. Upon ambulatory pulse ox patient did not require any home oxygen. Once his
symptoms continue to improve he was discharged home with instructions to follow-up with all his physicians outpatient.
Discharge Plan
-
Patient Disposition: Home (Routine Discharge)
Discharge Diagnosis/Procedures: Community-acquired pneumonia
Left thyroid lobe nodule measures up to 3.3 cm
Hypokalemia
Diet: As tolerated
Activity: As tolerated
Driving Restrictions: As prior to admission
Bathing Restrictions: None
Others Tests: Repeat chest x-ray to 4 weeks
Activity Restrictions/Additional Instructions:
Left thyroid lobe nodule measures up to 3.3 cm. Recommend outpatient workup with dedicated thyroid ultrasound
Referrals:
Yuniel Hastings MD [Active] - in two to four weeks (full PFTs on day of office visit)
UNKNOWN - PT DOES,NOT KNOW [Unknown Provider] - in less than 1 week
Prescriptions:
New
benzonatate 100 mg Capsule
200 mg PO TIDPRN PRN (Reason: cough) Qty: 20 0RF
doxycycline hyclate 100 mg Capsule
100 mg PO BID Qty: 10 0RF
guaifenesin 600 mg Tablet Extended Release 12hr
600 mg PO Q12 Qty: 14 0RF
cefdinir 300 mg capsule
300 mg PO BID 5 Days Qty: 10 0RF
Lactobacillus acidophilus 10 billion cell capsule
10,000 mmu cells PO DAILY Qty: 10 0RF
Continued
rosuvastatin 5 MG tablet
5 mg PO DAILY
alfuzosin 10 MG tablet extended release 24 hr
10 mg PO DAILY
hydrochlorothiazide 12.5 MG tablet
12.5 mg PO DAILY
cholecalciferol (vitamin D3) 2,000 UNITS tablet
1,000 units PO DAILY
latanoprost 0.005 % Drops
1 drp BOTH EYES QPM
timolol 0.5 % Drops
1 drp BOTH EYES DAILY
finasteride 5 mg Tablet
5 mg PO DAILY
PreserVision AREDS-2 250-90-40-1 mg Tablet,Chewable
1 tab PO BID
Discharge Orders:
Discharge Patient (As Directed); Ordered 09/02/24
Ordered By: Charbel Wade
Discharge Date and Time
Discharge Date/Time: 09/02/24 13:26
Print Language: GREENLANDIC
[2024-09-02 13:18] VITALS: BP 121/66
--- NOTE | 2024-09-02 13:33 | CM ---
Initial assessment completed at bedside
Pharmacy verified: [facility] [address] [facility]
Family Physician verified: Yuriy Hodges # [phone]; [address], [address], [place] [address]
Patient and live in a multilevel home; patient's bedroom and bath on 1st floor; bath has stall shower w/ seat
PLOF: reported he is independent with ambulation, stairs, and ADLs; does not drive
NO SNF or Home Health utilization history
Declined offer for home health/VN
Daughter will transport home
Plan: Discharge to home; no needs
== END 2024-09-02 13:26 | disposition home or self-care (01) | DRG 871 ==
LOC: 3 WEST ACU 00:35
PROVIDERS: Nurse Practitioner Family; Physician Assistant; ADMITTING PHYSICIAN Hospitalist; ATTENDING PHYSICIAN Internal Medicine; CONSULT PHYSICIAN Internal Medicine Critical Care Medicine; EMERGENCY PHYSICIAN Student in an Organized Health Care Education/Training Program; FAMILY PHYSICIAN Family Medicine
DX: A41.89 Other specified sepsis (principal); J18.9 Pneumonia, unspecified organism; J96.01 Acute respiratory failure with hypoxia; R74.01 Elevation of levels of liver transaminase levels; N40.0 Benign prostatic hyperplasia without lower urinary tract symptoms; H40.9 Unspecified glaucoma; R79.89 Other specified abnormal findings of blood chemistry; E04.1 Nontoxic single thyroid nodule; H35.30 Unspecified macular degeneration; E87.6 Hypokalemia; E78.00 Pure hypercholesterolemia, unspecified; I10 Essential (primary) hypertension; Z85.51 Personal history of malignant neoplasm of bladder; Z85.820 Personal history of malignant melanoma of skin; Z90.49 Acquired absence of other specified parts of digestive tract; Z88.2 Allergy status to sulfonamides; Z85.828 Personal history of other malignant neoplasm of skin; Z87.891 Personal history of nicotine dependence; Z11.52 Encounter for screening for COVID-19
CPT/HCPCS: 71046; 71275; 80048; 80053; 83605; 83880; 84145; 84484; 85025; 85027; 87070; 87205; 87449; 87502; 87811; 87899; 93005; 94667; 96374; 97116; 97166; 99285; Q9967

== ENCOUNTER → 2024-10-10 10:18 | Outpatient (REF) | payer MEDICARE, OTHER, SELFPAY | LOC: HWRAD 10:18 | PROVIDERS: ATTENDING PHYSICIAN Nurse Practitioner Family; FAMILY PHYSICIAN Family Medicine | DX: Z87.01 Personal history of pneumonia (recurrent) (principal) | CPT/HCPCS: 71046 ==